=== PATIENT | female | born 1940 | race Caucasian/White ===

== ENCOUNTER 2018-09-26 11:22 | Inpatient (IN) | payer MEDICARE ==
[~2018-09-26] VITALS: Ht 160 cm; Wt 88.5 kg
[~2018-09-26 11:22] MED LIST: ADULT LOW DOSE81 MG PO; ADVAIR 250-501 EACH IH; ADVIL200 MG PO; ALBUTEROL2.5 MG/3 M IH; CEPHALEXIN500 MG PO; DUONEB 0.5 MG-33 ML IH; DUONEB 0.5 MG-33 ML INH; FUROSEMIDE40 MG PO; LEVOFLOXACIN250 MG PO; LOPRESSOR50 MG PO; LOVASTATIN40 MG PO; METOPROLOL SUCC50 MG PO; METOPROLOL TART50 MG PO; NORVASC5 MG PO; OMEPRAZOLE20 MG PO; PREDNISONE10 MG PO; PREDNISONE20 MG PO; PROMETHAZINE-COD5 ML PO; PROVENTIL HFA6.7 GM INH; TOPROL XL100 MG PO; TOPROL XL50 MG PO; ZESTRIL40 MG PO; ZITHROMAX TRI-500 MG PO
[2018-09-26] MEDS ORDERED: PREDNISONE20 MG PO (14:14)
[2018-09-26] MEDS ORDERED: METOPROLOL TART50 MG PO ×2 (14:14→18:27)
[2018-09-26] MEDS ORDERED: IPRAT-ALBUT 0.5-3 ML INH (14:14)
[2018-09-26] MEDS ORDERED: DOXYCYCLINE HY100 MG PO (14:14)
[2018-09-26] MEDS ORDERED: VENTOLIN HFA18 GM INH (14:14)
--- NOTE | 2018-09-26 18:21 | NUR ---
PT TO FLOOR VIA STRETCHER WITH NEHEMIAH MANCERA. PT ABLE TO AMBULATE TO RESTROOM. 4L NC IN PLACE. PT APPEARS KIND OF WEEPY. DENIES CONCERNS. MEDICATION GIVEN PER ORDER.
--- NOTE | 2018-09-26 18:29 | NUR ---
Medications reconciled with pharmacy records and patient interview
--- NOTE | 2018-09-26 19:10 | NUR ---
bedside report received from offgoing rnAni. pt awake, participates in report. pt denies needs at this time. call light in reach.
--- NOTE | 2018-09-26 20:37 | NUR ---
PT ASSESSMENT COMPLETE. PT DENIES PAIN OR NAUSEA. REPORTS SLIGHT SOB AFTER WALKING WITH 1 PA AND FWW & BACK TO BED. LUNG SOUNDS DIMINISHED THROUGHOUT, SA02 90% ON 4LOM VIA NC. PT DENIES COUGH SINCE YESTERDAY. PT DENIES NEEDS AT THIS TIME. POC FOR THIS SHIFT DISCUSSED WITH PT. UNDERSTANDING STATED, PT DENIES FURTHER QUESTIONS. CALL LIGHT IN REACH.
--- NOTE | 2018-09-26 22:40 | NUR ---
PT UP TO BSC AND BACK TO BED WITH 1 PA, TOELRATED WELL. PT STATES THAT HER SOB IS DOING BETTER. PT DENIES NEEDS AT THIS TIME. CALL LIGHT IN REACH.
--- NOTE | 2018-09-26 22:41 | EKG ---
[facility] [address] [place] [address] Signed Normal sinus rhythm Low voltage QRS ST \T\ T wave abnormality, consider lateral ischemia Abnormal ECG No previous ECGs available Confirmed by ISABEL FLEMING MD ([id number]) on 09/26/2018 10:41:36 PM Electronically Signed By: ISABEL FLEMING MD 09/26/18 2241 PATIENT NAME: IGNACIO ALVAREZ Electrocardiogram DATE OF : 40 PHYSICIAN: ISABEL FLEMING MD REPORT #: [id number] REPORT IS CONFIDENTIAL AND NOT TO BE RELEASED WITHOUT AUTHORIZATION
--- NOTE | 2018-09-27 00:49 | NUR ---
pt up to bedside commode and back to bed with 1pa. pt tolerated well. denies further needs. call light in reach.
--- NOTE | 2018-09-27 02:32 | NUR ---
PT RESTING IN BED ON L SIDE WITH EYES CLOSED. RESPIRATIONS EVEN AND UNLABORED. O2 REMAINS IN PLACE. PT APPEARS TO BE SLEEPING. DOES NOT WAKE WHILE DIAMOND DRILLER IN DOORWAY. CALL LIGHT IN REACH.
--- NOTE | 2018-09-27 04:08 | NUR ---
PT UTILIZES CALL LIGHT, REQUESTS TO USE THE BATHROOM. PT ASSESSMENT COMPLETE. PT REPORTS FEELING MUCH IMPROVED UPON WAKING. REPORTS SLIGHT PLEURITIC PAIN WHEN TAKING DEEP BREATH. DENIES COUGH. LUNG SOUNDS DIM THROUGHOUT. O2 @ 4LPM, SAO2 93%. PT UP TO USE THE BATHROOM AND BACK TO BED WITH SBA AND FWW. PT TOLERATED WELL. PT REQUESTS ICE WATER, STATES "I'M STARTING TO FEEL DEHYDRATED." PT DENIES FURTHER NEEDS AT THIS TIME. CALL LIGHT IN REACH. RT IN ROOM FOR [facility] ALEJANDRO.
--- NOTE | 2018-09-27 05:10 | NUR ---
PT RESTING WELL THIS SHIFT. LUNG SOUNDS DIM THROUGHOUT. PT DENIES COUGH. O2 @ 4LPM, 3 LPM CHRONIC FOR PT AT HOME. SCHEDULED NEBS. IS AT BEDSIDE. PT REPORTS FEELING BETTER AFTER WAKING THIS AM. 1PA WITH FWW. UO QS. IV SL. AZITHROMYOCIN. SOLUMEDROL. REG DIET, TOLERATING WELL.
--- NOTE | 2018-09-27 06:23 | NUR ---
PT RESTING IN BED WITH EYES CLOSED. WAKES EASILY WHEN STATISTICIAN APPLIED ENTERS THE ROOM. PT STATES THAT SHE FEELS "MINTY" LIKE HER BREATH IS CRISP. MAKES HER FEEL "OVERMEDICATED". PT REPORTS THAT SHE FEELS THIS WAY AT TIMES AFTER TAKING MEDS AT HOME. PT STATES THAT SHE DIDN'T TAKE HER LASIX X1 DAY TO SEE IF THAT WOULD MAKE THE FEELING STOP. PT STATES IT IS NOT A CONSTANT OCCURANCE. PT HAS QUESTIONS REGARDING CHF AND LASIX. ALSO QUESTIONS REGARDING WHETHER CHF IS A PERMANENT ILLNESS. EDUCATION PROVIDED, WILL REQUIRE ONGOING EDUCATION. PAPERWORK REGARDING CHF TO BE PROVIDED. PT DENIES FURTHER NEEDS AT THIS TIME. CALL LIGHT WITHIN REACH.
--- NOTE | 2018-09-27 07:36 | NUR ---
PT SITTING UP IN BED ALERT AND ORIENTED. SHE REPORTS NO PAIN OR NAUSEA. READY TO ORDER BREAKFAST. REQUESTS ASSISTANCE TO GET UP TO BATHROOM.
--- NOTE | 2018-09-27 07:47 | NUR ---
Patient was awake sittting up in her bed. refused to have her face washed , fresh water was given. call light in reach.
--- NOTE | 2018-09-27 08:19 | NUR ---
PT SITTING UP AT BEDSIDE EATING BREAKFAST.
--- NOTE | 2018-09-27 11:50 | NUR ---
PT SITTING UP AT BEDSIDE. NYSTATIN S/S ADMINISTERED. PT HAS NO FURTHER REQUESTS AT THIS TIME.
--- NOTE | 2018-09-27 14:04 | NUR ---
PT JUST OUT OF SHOWER, B/P HIGH AT THIS TIME 185 SYSTOLIC, UPDATED WILL RECHECK AND DOCUMENT. ALSO PT WANTS A LOZENGE ORDERED, OK.
--- NOTE | 2018-09-27 15:48 | NUR ---
NOTIFIED OF PT HAVING HIGH B/P. TAKING TWICE OVER LAST HOUR AND MANUAL.
--- NOTE | 2018-09-27 16:26 | NUR ---
pt sitting at side of bed visitng with guest.
--- NOTE | 2018-09-27 16:58 | NUR ---
PT UP TO BATHROOM ONE PERSON STANDBY ASSIST WITH FWW. GUEST IN ROOM. PT REPORTS FEELING SHORT OF BREATH WITH AMBUALTING, 4L OXYGEN N.C. OXYGEN SATURATION 91%.
--- NOTE | 2018-09-27 17:06 | NUR ---
PT HAS BEEN UP TO BATHROOM FREQUENT, EVERY ONE TO TWO HOURS. STANDBY ASSIST WITH FWW. SHE IS ON 3L OXYGEN SATURATION WHICH IS CHRONIC. CONTINUES TO BE SHORT OF BREATH WITH ACTIVITY. CONTINUES TO HAVE COMPLAINT OF SORE THROAT, NEW MED ORDERS TODAY. PT SHOWERED TODAY. S/L WITH ABX. B/P HAS BEEN ELEVATED THIS AFTERNOON, NEW MED ORDER FOR THIS. PT LUNGS ARE DIM/TIGHT THROUGHOUT.
--- NOTE | 2018-09-27 19:10 | NUR ---
SHIFT REPORT RECIEVED. PATIENT RESTING IN BED, HOB ELEVATED. TOLERATING 3L NC. DENIES FEELING SOB. REPORTS SORE THROAT AND REQUESTING NO NEB TREATMENTS, SHE FEELS THIS IS MAKING HER THROAT MORE SORE. WILL DISCUSS CONCERNS WITH RT AND MD. PATIENT DENIES FURTHER CONCERNS.
--- NOTE | 2018-09-27 20:30 | NUR ---
EVENING MEDICATIONS PROVIDED PER ORDER. PATIENT REPORTS 9/10 PAIN IN HER THROAT THAT SHE DESCRIBES AT "BURNING AND SWOLLEN". PRN THROAT LOZENGE PROVIDED. PATIENT DECLINES WARM/COLD FLUIDS OR OTHER FORMS OF SOOTHING THRAOT. STATES "I NEED TO JUST NOT HAVE THOSE BREATHING TREATMENTS. THE CHEMICALS ARE EATING AWAY AT MY THROAT." LUNG SOUNDS ARE CLEAR, DIMINISHED IN THE BASES. ENCOUARGED IS USE AND PATIENT REFUSED. TOLERATING 3L NC. PATIENT SITTING UP RIGHT AND MILDLY USING ASSESSORY MUSCLES, DENIES FEELING SOB. BP REMAINS ELEAVTED, WILL CONTINUE TO MONITOR. IV ABX PER ORDER. PATIENT DENIES FURTHER NEEDS AT THIS TIME.
--- NOTE | 2018-09-27 22:00 | NUR ---
PATIENT UP TO BATHROOM WITH MICHAELA BRICENO. REPORTS SORENESS IN HER THROAT HAS IMPROVED BUT IT IS "SWOLLEN". DENIES ANY NEEDS FOR THIS, PRN THROAT LOZENGE PROVIDED. PATIENT'S BP REMAINS ELEVATED AT 190/59, HR 79. ALLOWED PATIENT TO REST, WILL REASSESS.
--- NOTE | 2018-09-27 22:14 | NUR ---
PRIMARY RN IS AWARE RE BP.
--- NOTE | 2018-09-27 22:45 | NUR ---
PATIENT RESTING IN BED. MANUAL BP PERFORMED, 188/68 WITH HR 78. PRN HYDRALAZINE PROVIDED. WILL CONTINUE TO MONITOR.
--- NOTE | 2018-09-28 00:18 | NUR ---
PATIENT REQUESTING NITRO STATING "I TAKE IT AT HOME WHEN I FEEL LIKE THIS". ENCOURAGED PATIENT TO EXPLAIN HER NEED FOR NITRO AND PATIENT STATES "IT HURTS THROUGH HERE AND UP TO MY JAW", INDICATING HER EPIGASTRIC AREA. "IT MIGHT BE MY ESOPHAGUS OR MY HEART, BUT NITRO HELPS". VS DONE; BP 185/72, HR 75. PATIENT DOES NOT APPEAR TO BE IN DISTRESS. RT IN ROOM. MD NOTIFIED. ORDERS FOR GI COCKTAIL AND PRN NITRO PROVIDED. GI COCKTAIL PROVIDED TO PATIENT, DISCUSSED PLAN OF CARE AND SHE IS AGREEABLE. PATIENT UP TO BATHROOM WITH MICHAELA BRICENO. WILL CONTINUE TO MONITOR.
--- NOTE | 2018-09-28 00:30 | NUR ---
PATIENT REPORTS RELIEF OF PAIN AND APPEARS TO BE RESTING COMFORTABLY. CALL LIGHT IN REACH.
--- NOTE | 2018-09-28 01:45 | NUR ---
PATIENT APPEARS TO BE SLEEPING SOUNDLY. RR 22. 3L NC IN PLACE.
--- NOTE | 2018-09-28 02:30 | NUR ---
PATIENT UP TO BSC. REQUEST TO SIT UP FOR A WHILE. PATIENT HAVING DIFFICULTY RESTING COMFORTABLY. DENIES ANY INTERVENTIONS BY THE RN. REPORTS ONGOING SORENESS IN HER THROAT. TOLERATING 3L NC. LUNG SOUNDS CLEAR BUT DIM. PATIENT DENIES ANY FURTHER NEEDS. MICHAELA BRICENO ASSISTED HER BACK INTO BED AFTER A FEW MINS.
--- NOTE | 2018-09-28 03:58 | NUR ---
PATIENT APPEARS TO BE SLEEPING. RR 22. 3L NC IN PLACE. CALL LIGHT IN REACH.
--- NOTE | 2018-09-28 04:32 | NUR ---
PATIENT SITTING UP TO THE EDGE OF THE BED. REPORTS HAVING DREAMS THAT ARE KEEPING HER FROM SLEEPING. DENIES ANY NEEDS. REPORTS HER THROAT IS SLIGHTLY BETTER NOW. REFUSING SCHEDULED NEBS. IV ABX STARTED. PATIENT RESTING IN BED. CALL LIGHT IN REACH.
--- NOTE | 2018-09-28 06:24 | NUR ---
PATIENT RESTING IN BED. REPORTS MILD SORENESS IN HER THROAT. DENIES SOB. COLIN CERNA TO PROVIDED SCHEDULED MEDS.
--- NOTE | 2018-09-28 06:25 | NUR ---
PATIENT HARDLY SLEPT THIS SHIFT. UP FREQUENTLY TO VOID AND REPORTS SORENESS IN HER THROAT. REFUSING SCHEDULED NEBS. TOLERATING 3L NC, CHRONIC. LUNGS CLEAR BUT DIMINISHED. GI COCKTAIL PROVIDED FOR EPIGASTRIC AND JAW PAIN, WHICH RESOLVED. VS STABLE. BP ELEVATED, PRN HYDRALAZINE PROVIDED X1. IV SL, SCHEDULED ABX. TOLERATING DIET.
--- NOTE | 2018-09-28 07:30 | NUR ---
REPORT RECEIVED FROM NEHEMIAH PENA. PT APPEARS TO BE ASLEEP IN CHAIR. OX IN PLACE.
--- NOTE | 2018-09-28 09:00 | NUR ---
PT SITTING UP IN CHAIR. APPEARS SOB BUT DENIES. RR 22. OX ON 4L. ATE 75%BREAKFAST. ADMINSITERED MEDS. LUNGS DIM.
--- NOTE | 2018-09-28 11:12 | NUR ---
PT SITTING UP IN CHAIR WITH VISITOR, NEIGHBOUR IN ROOM. PT STATES SHE IS A LITTLE NAUSEOUS. WILL CHECK TO SEE WHAT SHE HAS
--- NOTE | 2018-09-28 11:19 | NUR ---
Certified Heart Failure Nurse Notes: Diagnosis: pneumonia Received consult request for CHF education from Dr Rodriguez on 09/27/18. Patient has history of HF. Last documented EF in [employer] 67%. Currently euvolemic. PCP: Dr. Overton Date of echocardiogram -NA Admit Wt.: 195lb Admit BNP: 503 Social support system: Lives alone. Has a close friend. Weight monitoring: Scale present in home but does not work properly. Patient accepted a [employer] digital scale to take home. Identifies how to weigh daily/ identifies when to notify PCP Symptom management: Addressed monitoring and reporting changes in weight or symptoms utilizing Zones form Transportation mode: Cab or neighbor take her to appointments and picks up her medications. She states she does not leave her home. Discussed rational for low sodium diet and high sodium process foods to avoid Medication routine: Utilizes 7 day pill box. Denies problems obtaining medications or problems remembering them. Advanced directive: Not discussed at this initial visit Barriers to self-care include:poor vision and home bound Patient goal: To be able to stay in her own home Follow-up plans: Discussed case with Norberto Goodman RN. Recommended home health upon discharge. Follow up with this service PRN Patient given [facility] contact information
--- NOTE | 2018-09-28 12:12 | NUR ---
PT CONTINUES TO HAVE NAUSEA. CALLED DR SETH SOUZA. PLACED ORDER, WILL ADMINISTER.
--- NOTE | 2018-09-28 14:49 | NUR ---
PT SOUND ASLEEP, WILL CHECK BACK AGAIN.
--- NOTE | 2018-09-28 15:37 | NUR ---
UPON RETURNING FROM BREAK WENT TO ADMINSTER SOLUMEDROL. PT APPEARED TO BE SLEEPING, STATED HER NAME AND PT OPENED EYES AND TRACKED THIS RN. ASKED PT HER AND PT DID NOT ANSWER. ASKED AGAIN AND SHE JUST LOOKED AT THIS RN. WENT TO GET ASSISTANCE. PT COULD NOT SQUEEZE HAND ON LEFT SIDE, STRONG ON RIGHT. DR ANN AND OTHER RN'S IN ROOM. STARTED NEW IV AND STACIE LABS. HEAD CT ORDERED. ASSISTED IMAGING STAFF TO TAKE PT TO CT. IN CT NOTICED ABDOMEN APPEARED MORE DISTENDED. CALLED DR ANN, WHO ORDERED AN ABD CT. PT APPEARED MORE RESPONSIVE AND COULD SQUEEZE HAND SLIGHTLY. UPON ARRIVAL BACK IN ROOM PT BREATHING CHANGED. HR FAINT. VS ABNORMAL. DR ANN IN ROOM. LOSS PREVENTION MANAGER ZENIA AND NEHEMIAH MAGAÑA IN ROOM. FRIEND LAURENCE ALSO IN ROOM. PT UNRESPONSIVE TO PAINFUL STIMULI. TELE PLACED AND HR REMAINED FAINT AND NON AUDIBLE. IVF RAN WIDE OPEN AND VS AGAIN ASSESSED. BP NOW LOW. AUDIBLE GURGLING HEARD.
--- NOTE | 2018-09-28 16:15 | NUR ---
CALLED TO ROOM. ASSESSED PT AND NOTIFIED DR ANN THAT A HR COULD NO LONGER BE HEARD OR PALPATED. FRIENDS OF PT IN ROOM.
--- NOTE | 2018-09-28 17:03 | NUR ---
I WAS NOTIFIED BY M/S MICHAELA HERNANDEZ THAT PT HAD PASSED AND FRIENDS OF PT WERE PRESENT. WHEN I ARRIVED, FRIENDS HAD LEFT, TAKING PT'S BELONGINGS AND INFORMED DR ANN AND HOME EXTENSION AGENT PT HAD PREVIOUSLY MADE FINAL ARRANGEMENTS WITH [facility]. ROBE GAINES CONTACTED DONOR LINE-PT IS NOT ELIGIBLE. DR ANN HAD CONTACTED NEXT OF KIN, ALL OUT OF AREA AND CONFIRMED THAT THEY WERE AWARE OF PT'S FINAL ARRANGEMENTS. I CONTACTED [facility], ASSISTED WITH STAFF, LISA FROM [facility] AND PLACED PASSAGE QUILT ON PT. ESCORTED BODY TO VEHICLE. WILL CONTACT FAMILY NEEDED
== END 2018-09-28 16:04 | DRG 189 ==
LOC: ED 11:22 → MS 11:24
PROVIDERS: ADMIT Internal Medicine
DX: J96.21 Acute and chronic respiratory failure with hypoxia (principal); J13 Pneumonia due to Streptococcus pneumoniae; I42.9 Cardiomyopathy, unspecified; E87.1 Hypo-osmolality and hyponatremia; C34.11 Malignant neoplasm of upper lobe, right bronchus or lung; J96.22 Acute and chronic respiratory failure with hypercapnia; J43.9 Emphysema, unspecified; I25.2 Old myocardial infarction; I11.0 Hypertensive heart disease with heart failure; I50.9 Heart failure, unspecified; Z51.5 Encounter for palliative care; M81.0 Age-related osteoporosis without current pathological fracture; R73.9 Hyperglycemia, unspecified; T38.0X5A Adverse effect of glucocorticoids and synthetic analogues, initial encounter; Z99.81 Dependence on supplemental oxygen; Z66 Do not resuscitate; Z87.891 Personal history of nicotine dependence; Z88.0 Allergy status to penicillin; Z88.2 Allergy status to sulfonamides; Z79.51 Long term (current) use of inhaled steroids; Z79.52 Long term (current) use of systemic steroids; Z79.899 Other long term (current) drug therapy
CPT/HCPCS: 36415; 36600; 70450; 71045; 74176; 80048; 80053; 80076; 82140; 82803; 82977; 83615; 83735; 83880; 84100; 84484; 85025; 93005; 93010; 94640; 94760; 99285-25; J0456; J0692; J1940; J2405; J2920; J7030; J7060; J7512